=== PATIENT | female | born 1965 | race Caucasian/White ===

== ENCOUNTER 2016-07-27 18:05 | Emergency (ER) | payer SELFPAY ==
[~2016-07-27] VITALS: Ht 154.9 cm; Wt 80.0 kg
[2016-07-27] MEDS ORDERED: LORazepam 2 MG/ML, 1ML ONE (18:29)
[2016-07-27] MEDS ORDERED: PLEASE ENTER HEIGHT AND WEIGHT MC SCH (18:30)
[2016-07-27] MEDS ORDERED: LORazepam 2 MG/ML, 1ML IVPush ONE (18:30)
[2016-07-27 18:47] LABS: BLOOD UREA NITROGEN 16 mg/dL (7-18)
[2016-07-27 19:07] LABS: IS PT STATUS REG ER OR PRE ER? YES
[2016-07-27 20:07] VITALS: BP 128/85
== END 2016-07-27 20:16 | disposition home or self-care (01) ==
LOC: ED 18:21
DX: R07.89 Other chest pain (principal); F41.1 Generalized anxiety disorder
CPT/HCPCS: 36415; 71010; 80048; 82040; 84484; 85025; 93005; 96374; 99285; J2060